=== PATIENT | male | born 1940 | race Caucasian/White ===

== ENCOUNTER 2019-05-19 08:34 | Outpatient (CLI) | payer MEDICARE, OTHER ==
[~2019-05-19 08:34] MED LIST: AMLO10TA8 PO; ARGI1000 PO; ASPI-496 PO; ATOR20TA37 PO; BIOT25005 PO; BRIM5DRO2 EC; CHRO200T2 PO; CINN500C2 PO; CLON0.3T47 PO; COQ10 PO; CYAN25009 PO; DOCO100C PO; GLIM4TAB4 PO; HYDROCHLOROTH12.5 MG PO; INSU300I SQ; LABE100T6 PO; LACT1CAP35 PO; LANTANOPROST EACHEYE; LISI40TA PO; METO25TA91 PO; METO50TA82 PO; SITA100T PO; TORS20TA2 PO; VITAMIN D3 PO; nitroglycerin; stool softener PO
[2019-05-19 13:07] LABS: CHLORIDE 108 mmol/L (98-107)
[2019-05-19 13:16] LABS: ALANINE AMINOTRANSFERASE 32 U/L (12-78); ALBUMIN 3.8 g/dL (3.4-5.0); ALKALINE PHOSPHATASE 66 U/L (45-117); ANION GAP 8 mmol/L (5-15); BILIRUBIN,TOTAL 1.2 mg/dL (0.2-1.0); CHOL/HDL RATIO 2.5; CHOLESTEROL, TOTAL 135 mg/dL (140-239); CREATININE 2.33 mg/dL (0.7-1.3); HDL CHOL % 41 % (26-37); HDL CHOLESTEROL (DIRECT) 55 mg/dL (40-60); LDL CHOLESTEROL,CALCULATED 64 mg/dL (54-169); LDL/HDL RATIO 1.2 (0.5-3.0); TOTAL PROTEIN 7.6 g/dL (6.4-8.2); TRIGLYCERIDES 79 mg/dL (50-200); VLDL CHOLESTEROL 16 mg/dL (0-25)
== END 2019-05-19 23:59 | disposition home or self-care (01) ==
LOC: CFH 08:34
PROVIDERS: ATTEND Internal Medicine Cardiovascular Disease
DX: I08.3 Combined rheumatic disorders of mitral, aortic and tricuspid valves (principal); E78.5 Hyperlipidemia, unspecified; E11.9 Type 2 diabetes mellitus without complications; I12.9 Hypertensive chronic kidney disease with stage 1 through stage 4 chronic kidney disease, or unspecified chronic kidney disease; I26.99 Other pulmonary embolism without acute cor pulmonale; I27.20 Pulmonary hypertension, unspecified; I25.10 Atherosclerotic heart disease of native coronary artery without angina pectoris; N18.9 Chronic kidney disease, unspecified; I42.9 Cardiomyopathy, unspecified; R60.0 Localized edema; Z95.0 Presence of cardiac pacemaker
CPT/HCPCS: 36415; 80053; 80061; 83880; 93306

== ENCOUNTER → 2019-07-13 | Outpatient (CLI) | payer MEDICARE, OTHER ==
[~2019-07-13] MED LIST changes: +CLON0.3T PO; -CLON0.3T47 PO; -GLIM4TAB4 PO; +GLIM4TAB8 PO
[2019-07-13 12:56] LABS: BASOPHILS # (AUTO) 0.04 x10^3/uL (0-0.1); BASOPHILS % (AUTO) 1 % (0-1); EOSINOPHILS # (AUTO) 0.73 x10^3/uL (0-0.4); EOSINOPHILS % (AUTO) 9 % (1-7); LYMPHOCYTES # (AUTO) 1.14 x10^3/uL (1-3.4); LYMPHOCYTES % (AUTO) 15 % (22-44); MD NO; MEAN CORPUSCULAR HEMOGLOBIN 29.7 pg (27.5-34.5); MEAN CORPUSCULAR HGB CONC 33.7 g/dL (33.2-36.2); MEAN CORPUSCULAR VOLUME 88.2 fL (81-97); MEAN PLATELET VOLUME 8.1 fL (7.4-10.4); MONOCYTES # (AUTO) 0.44 x10^3/uL (0.2-0.8); MONOCYTES % (AUTO) 6 % (2-9); NEUTROPHILS % (AUTO) 70 % (42-75); PLATELET COUNT 180 x10^3/uL (130-400); RED BLOOD COUNT 4.72 x10^6/uL (4.38-5.82); RED CELL DISTRIBUTION WIDTH 16.2 % (9.4-14.8)
[2019-07-13 14:10] LABS: ALBUMIN 3.4 g/dL (3.4-5.0); ANION GAP 5 mmol/L (5-15); CALCIUM 8.9 mg/dL (8.5-10.1); CHLORIDE 111 mmol/L (98-107)
[2019-07-13 14:15] LABS: ALANINE AMINOTRANSFERASE 21 U/L (12-78); ALKALINE PHOSPHATASE 53 U/L (45-117); CHOL/HDL RATIO 2.6; CHOLESTEROL, TOTAL 142 mg/dL (140-239); CREATININE 2.27 mg/dL (0.7-1.3); HDL CHOL % 39 % (26-37); HDL CHOLESTEROL (DIRECT) 55 mg/dL (40-60); LDL CHOLESTEROL,CALCULATED 69 mg/dL (54-169); LDL/HDL RATIO 1.3 (0.5-3.0); TOTAL PROTEIN 6.7 g/dL (6.4-8.2); TRIGLYCERIDES 90 mg/dL (50-200); VLDL CHOLESTEROL 18 mg/dL (0-25)
== END | disposition home or self-care (01) ==
LOC: CFH 09:13
PROVIDERS: ATTEND Physician Assistant Medical
DX: E11.22 Type 2 diabetes mellitus with diabetic chronic kidney disease (principal); I25.10 Atherosclerotic heart disease of native coronary artery without angina pectoris; I26.99 Other pulmonary embolism without acute cor pulmonale; I12.9 Hypertensive chronic kidney disease with stage 1 through stage 4 chronic kidney disease, or unspecified chronic kidney disease; I27.20 Pulmonary hypertension, unspecified; I34.0 Nonrheumatic mitral (valve) insufficiency; I42.9 Cardiomyopathy, unspecified; R60.0 Localized edema; Z95.0 Presence of cardiac pacemaker; E78.5 Hyperlipidemia, unspecified; N18.4 Chronic kidney disease, stage 4 (severe)
CPT/HCPCS: 36415; 80053; 80061; 83036; 83880; 85025

== ENCOUNTER → 2019-11-24 | Outpatient (CLI) | payer MEDICARE, OTHER | END | disposition home or self-care (01) | LOC: CARD 12:22 | PROVIDERS: ATTEND Physician Assistant Medical | DX: I27.20 Pulmonary hypertension, unspecified (principal) | CPT/HCPCS: 94060; 94726; 94729 ==

== ENCOUNTER → 2019-12-12 | Outpatient (CLI) | payer MEDICARE, OTHER | END | disposition home or self-care (01) | LOC: RAD 09:48 | PROVIDERS: ATTEND Physician Assistant Medical | DX: I27.20 Pulmonary hypertension, unspecified (principal) | CPT/HCPCS: 78582; A9540; A9558 ==